=== PATIENT | female | born 1990 | race Caucasian/White ===

== ENCOUNTER 2017-08-21 15:40 | Emergency (ER) | payer MEDICAID, OTHER ==
[2017-08-21 18:15] VITALS: BP 138/65
--- NOTE | 2017-08-21 19:04 | UC ---
Nausea/Vomiting/Diarrhea HPI - HPI Summary HPI Summary: Pt presents with 24 hours of n/v and diarrhea. Pt reports cramping relieved with BM no blood, no black. no fevers, chills. mild body aches. Pt has had little po. no fever chills + sick contact with similar at school. No sob, cough, cp. No toribio/vision changes no analgesia taken Pt's medications reviewed this visit - History of Current Complaint Chief Complaint: UCGeneralIllness Stated Complaint: NAUSEA/VOMITING, DIARRHEA, SHOOTING PAINS Time Seen by Provider: 08/21/17 18:19 Hx Obtained From: Patient Hx Last Menstrual Period: 08/16/17 ?: No Onset/Duration: Gradual Onset Severity Initially: Moderate Severity Currently: None Pain Intensity: 0 - Allergies/Home Medications Allergies/Adverse Reactions: Allergies Allergy/AdvReac Type Severity Reaction Status Date / Time amoxicillin [From Augmentin] Allergy Hives Verified 08/21/17 18:12 clavulanic acid Allergy Hives Verified 08/21/17 18:12 [From Augmentin] PMH/Surg Hx/FS Hx/Imm Hx Previously Healthy: Yes Other History Of: Negative For: Anticoagulant Therapy - Surgical History Surgical History: None - Family History Known Family History: Positive: Hypertension, Diabetes - Social History Occupation: Student Lives: With Family Alcohol Use: Occasionally Substance Use Type: None Smoking Status (MU): Former Smoker Type: Cigarettes Amount Used/How Often: trying to quit, none in a week Length of Time of Smoking/Using Tobacco: 7 yrs Have You Smoked in the Last Year: Yes When Did the Patient Quit Smoking/Using Tobacco: 02/2015 Household Exposure Type: Cigarettes Review of Systems Constitutional: Other - mylagia Skin: Negative Eyes: Negative ENT: Negative Respiratory: Negative Cardiovascular: Negative Gastrointestinal: Abdominal Pain, Diarrhea, Nausea Genitourinary: Negative Motor: Negative Neurovascular: Negative Musculoskeletal: Negative Neurological: Negative Psychological: Negative All Other Systems Reviewed And Are Negative: Yes Physical Exam Triage Information Reviewed: Yes Appearance: Well-Appearing, No Pain Distress, Well-Nourished Vital Signs: Initial Vital Signs Temp 98.5 F 08/21/17 18:10 Pulse 60 08/21/17 18:10 Resp 20 08/21/17 18:10 BP 138/65 08/21/17 18:10 Pulse Ox 100 08/21/17 18:10 Eye Exam: Normal Eyes: Positive: Conjunctiva Clear ENT Exam: Normal ENT: Positive: Normal ENT inspection, Hearing grossly normal, Pharynx normal, Other - lips pasty Dental Exam: Normal Neck exam: Normal Neck: Positive: Supple Respiratory Exam: Normal Respiratory: Positive: Lungs clear, Normal breath sounds, No respiratory distress, No accessory muscle use Cardiovascular Exam: Normal Cardiovascular: Positive: RRR, No Murmur, Pulses Normal Abdominal Exam: Normal Abdomen Description: Positive: Nontender, No Organomegaly, Soft. Negative: CVA Tenderness (R), CVA Tenderness (L), Distended, Guarding Bowel Sounds: Positive: Present Musculoskeletal Exam: Normal Neurological Exam: Normal Neurological: Positive: Alert, Muscle Tone Normal Psychological Exam: Normal Skin Exam: Normal Naus/Vom/Diarrhea Course/Dx - Course Course Of Treatment: Pt presents with 24 hours of n/v/d Pt state sx resolved at present. + sick contact with simiarl. Pt with stable VS and non concerning exam. will check urine, flu pregancy. clears to bland. note. hygeine precaution discussed - Differential Dx/Diagnosis Provider Diagnoses: nausea, vomiting, diarrhea Condition At Discharge: Stable Discharge - Discharge Plan Condition: Stable Disposition: HOME Patient Education Materials: Acute Nausea and Vomiting (ED) Forms: *Gen. Provider Communication, *Work Release Referrals: No Primary Care Phys,NOPCP [Primary Care Provider] - Additional Instructions: - Okay to alternate ibuprofen (Advil, Motrin) and Tylenol every 3 hours for pain or fever. Take with food. Do NOT take for more than 4-5 days. - Stay well hydrate. Drink plenty of non alcoholic, non caffeinated beverages. Clears: For the first 6 hours, eat and drink clears (water, rajinder dioni, soup broth, jello, popsicles, Gatorade). If you tolerate this okay, add bland foods such as dry toast, scrambled eggs, crackers. Wait until you are feeling better for 24 hours before eating spicy food, acidic food, tomato based food, fried food. -These infections are spread by oral secretions. Do not share eating or drinking utensils. Frequent hand washing is important. Clean items that may get your secretions on them such as cell phones, ipads, computer mouse, television remotes - get plenty of restful sleep If you are unable to stay hydrated, have uncontrolled fever, or uncontrolled pain it is recommended you go directly to the emergency department
== END 2017-08-21 20:14 | disposition home or self-care (01) ==
LOC: UCCORT 15:40
DX: R11.2 Nausea with vomiting, unspecified (principal); R19.7 Diarrhea, unspecified; R10.9 Unspecified abdominal pain; Z88.1 Allergy status to other antibiotic agents; Z87.891 Personal history of nicotine dependence
CPT/HCPCS: 81003; 87086; 87502; 99211; G0463

== ENCOUNTER 2017-12-11 15:57 | Emergency (ER) | payer BC, MEDICAID ==
[2017-12-11 16:15] VITALS: BP 139/83
--- NOTE | 2017-12-11 16:36 | UC ---
UC General HPI - HPI Summary HPI Summary: Patient urgent care center known with chief complaint of feeling like she's . Nausea vomiting heavy breasts fatigue. Patient states she has Upon and that she does not get her periods. Patient state that she before we'll being 100% compliant with oral contraceptives. - History of Current Complaint Chief Complaint: [facility]CGU Stated Complaint: PREG TEST Time Seen by Provider: 12/11/17 16:28 Hx Obtained From: Patient Hx Last Menstrual Period: unknown Onset/Duration: Gradual Onset Pain Intensity: 0 - Allergy/Home Medications Allergies/Adverse Reactions: Allergies Allergy/AdvReac Type Severity Reaction Status Date / Time amoxicillin [From Augmentin] Allergy Hives Verified 12/11/17 16:15 clavulanic acid Allergy Hives Verified 12/11/17 16:15 [From Augmentin] PMH/Surg Hx/FS Hx/Imm Hx Previously Healthy: Yes Other History Of: Negative For: Anticoagulant Therapy - Surgical History Surgical History: None - Family History Known Family History: Positive: Hypertension, Diabetes - Social History Occupation: Employed Full-time Lives: With Family Alcohol Use: Occasionally Substance Use Type: None Smoking Status (MU): Former Smoker Type: Cigarettes Amount Used/How Often: trying to quit, none in a week Length of Time of Smoking/Using Tobacco: 7 yrs Have You Smoked in the Last Year: Yes When Did the Patient Quit Smoking/Using Tobacco: 02/2015 Household Exposure Type: Cigarettes Review of Systems Constitutional: Negative Skin: Negative Eyes: Negative ENT: Negative Respiratory: Negative Cardiovascular: Negative Gastrointestinal: Vomiting, Nausea Genitourinary: Negative Motor: Negative Neurovascular: Negative Musculoskeletal: Negative, Other: - breast tenderness Neurological: Negative Psychological: Negative Is Patient Immunocompromised?: No All Other Systems Reviewed And Are Negative: Yes Physical Exam Triage Information Reviewed: Yes Appearance: Well-Appearing, No Pain Distress, Well-Nourished Vital Signs: Initial Vital Signs Temp 98.2 F 12/11/17 16:09 Pulse 67 12/11/17 16:09 Resp 18 12/11/17 16:09 BP 139/83 12/11/17 16:09 Pulse Ox 100 12/11/17 16:09 Vital Signs Reviewed: Yes Eye Exam: Normal Eyes: Positive: Conjunctiva Clear ENT Exam: Normal ENT: Positive: Normal ENT inspection, Hearing grossly normal. Negative: Trismus , Muffled voice, Hoarse voice Dental Exam: Normal Neck exam: Normal Neck: Positive: Supple, Nontender, No Lymphadenopathy Respiratory Exam: Normal Respiratory: Positive: Chest non-tender, No respiratory distress, No accessory muscle use Cardiovascular Exam: Normal Cardiovascular: Positive: RRR, Pulses Normal, Brisk Capillary Refill Abdominal Exam: Normal Abdomen Description: Positive: Nontender, No Organomegaly, Soft. Negative: CVA Tenderness (R), CVA Tenderness (L) Bowel Sounds: Positive: Present Musculoskeletal Exam: Normal Musculoskeletal: Positive: Strength Intact, ROM Intact, No Edema Neurological Exam: Normal Neurological: Positive: Alert, Muscle Tone Normal Psychological Exam: Normal Skin Exam: Normal Diagnostics - Laboratory Diagnostic Studies Completed/Ordered: u preg (-) Course/Dx - Course Course Of Treatment: will draw serum , follow with pcp - Differential Dx - Multi-Symptom Provider Diagnoses: acute nausea and vomiting Discharge - Sign-Out/Discharge Documenting (check all that apply): Discharge/Admit/Transfer - Discharge Plan Condition: Stable Disposition: HOME Patient Education Materials: Clear Liquid Diet (ED), Acute Nausea and Vomiting (ED) Referrals: Kate Dukes MD [Primary Care Provider] - If Needed - Billing Disposition and Condition Condition: STABLE Disposition: Home
--- NOTE | 2017-12-12 08:31 | UC ---
- Progress Note Progress Note: hcg 0.61 negative please call pt and update 12/12/2017 8:31 ljj Discharge - Sign-Out/Discharge Documenting (check all that apply): Post-Discharge Follow Up - Discharge Plan Condition: Stable Disposition: HOME Patient Education Materials: Clear Liquid Diet (ED), Acute Nausea and Vomiting (ED) Referrals: Kate Dukes MD [Primary Care Provider] - If Needed - Billing Disposition and Condition Condition: STABLE Disposition: Home
== END 2017-12-11 16:40 | disposition home or self-care (01) ==
LOC: UCEAST 15:57
DX: R11.2 Nausea with vomiting, unspecified (principal); R53.83 Other fatigue; Z32.02 Encounter for pregnancy test, result negative; Z88.1 Allergy status to other antibiotic agents; Z88.0 Allergy status to penicillin; Z87.891 Personal history of nicotine dependence
CPT/HCPCS: 36415; 81003; 84702; 99211; G0463

== ENCOUNTER 2018-11-23 10:59 | Emergency (ER) | payer BC, OTHER ==
[2018-11-23 11:27] VITALS: BP 119/78
--- NOTE | 2018-11-23 11:42 | UC ---
Throat Pain/Nasal Otoniel HPI - HPI Summary HPI Summary: sore throat x 1 days pain is 5 out of 10 , nasal congestion , pnd, cough, no fever, no chills, no body aches nephew with strep - History of Current Complaint Chief Complaint: UCGeneralIllness Stated Complaint: SORE THROAT Time Seen by Provider: 11/23/18 11:27 Hx Obtained From: Patient Hx Last Menstrual Period: 11/19/2018 ?: No Onset/Duration: Gradual Onset, Lasting Days - 1, Still Present Severity: Moderate Pain Intensity: 6 Cough: None Associated Signs & Symptoms: Positive: Sinus Discomfort, Nasal Discharge. Negative: FB Sensation, Drooling, Wheezing, Hoarseness, Fever, Vomiting, Rash - Allergies/Home Medications Allergies/Adverse Reactions: Allergies Allergy/AdvReac Type Severity Reaction Status Date / Time amoxicillin [From Augmentin] Allergy Hives Verified 11/23/18 11:21 clavulanic acid Allergy Hives Verified 11/23/18 11:21 [From Augmentin] Home Medications: Home Medications D-Methorphan/PE/Acetaminophen [Daytime Cold-Flu Liquid] 1 dose PO ONCE 11/23/18 [History Confirmed 11/23/18] Levothyroxine TAB* [Synthroid TAB*] 50 mcg PO DAILY 11/23/18 [History Confirmed 11/23/18] Venlafaxine EXT RELEASE CAP* [Effexor Xr CAP*] 225 mg PO DAILY 11/23/18 [ History Confirmed 11/23/18] busPIRone TAB* [Buspar TAB*] 1 dose PO DAILY 11/23/18 [History Confirmed ] PMH/Surg Hx/FS Hx/Imm Hx - Additional Past Medical History Additional PMH: anemia anxiety/depression PTSD Endocrine History: Thyroid Disease Psychological History: Anxiety, Depression Other History Of: Negative For: Anticoagulant Therapy - Surgical History Surgical History: None - Family History Known Family History: Positive: Hypertension, Diabetes - Social History Alcohol Use: Occasionally Substance Use Type: Marijuana Substance Use Comment - Amount & Last Used: occasional Smoking Status (MU): Former Smoker Type: Cigarettes Amount Used/How Often: trying to quit, none in a week Length of Time of Smoking/Using Tobacco: 7 yrs Have You Smoked in the Last Year: Yes When Did the Patient Quit Smoking/Using Tobacco: 02/2015 Household Exposure Type: Cigarettes Review of Systems All Other Systems Reviewed And Are Negative: Yes Constitutional: Positive: Negative Skin: Positive: Negative Eyes: Positive: Negative ENT: Positive: Sore Throat, Nasal Discharge, Sinus Congestion Respiratory: Positive: Negative Cardiovascular: Positive: Negative Is Patient Immunocompromised?: No Physical Exam Triage Information Reviewed: Yes Appearance: Well-Appearing, No Pain Distress, Obese Vital Signs: Initial Vital Signs Temp 97.5 F 11/23/18 11:23 Pulse 84 11/23/18 11:23 Resp 17 11/23/18 11:23 BP 119/78 11/23/18 11:23 Pulse Ox 100 11/23/18 11:23 Vital Signs Reviewed: Yes Eye Exam: Normal Eyes: Positive: Conjunctiva Clear ENT: Positive: Normal ENT inspection, Hearing grossly normal, Pharyngeal erythema, Nasal congestion, TMs normal. Negative: Nasal drainage, Tonsillar swelling, Tonsillar exudate Neck exam: Normal Neck: Positive: Supple, Nontender, No Lymphadenopathy Respiratory: Positive: Chest non-tender, Lungs clear, Normal breath sounds Cardiovascular: Positive: RRR, No Murmur, Pulses Normal Abdominal Exam: Normal Abdomen Description: Positive: Nontender, Soft Skin Exam: Normal Throat Pain/Nasal Course/Dx - Differential Dx/Diagnosis Provider Diagnosis: Viral pharyngitis Discharge - Sign-Out/Discharge Documenting (check all that apply): Patient Departure All imaging exams completed and their final reports reviewed: No Studies - Discharge Plan Condition: Stable Disposition: HOME Patient Education Materials: Pharyngitis (ED) Referrals: Kate Dukes MD [Primary Care Provider] - If Needed - Billing Disposition and Condition Condition: STABLE Disposition: Home
== END 2018-11-23 11:52 | disposition home or self-care (01) ==
LOC: UCCORT 10:59
DX: J02.9 Acute pharyngitis, unspecified (principal); R09.81 Nasal congestion; E07.9 Disorder of thyroid, unspecified; F41.9 Anxiety disorder, unspecified; Z79.890 Hormone replacement therapy; Z79.899 Other long term (current) drug therapy; Z88.0 Allergy status to penicillin; Z87.891 Personal history of nicotine dependence
CPT/HCPCS: 87651; 99211; G0463